=== PATIENT | male | born 1995 | race Caucasian/White ===

== ENCOUNTER 2025-04-06 16:00 | Inpatient (IN) ==
--- NOTE | 2025-04-06 16:33 | Emergency Department Note ---
History of Present Illness General Chief complaint: Swelling/Edema to Extremity Stated complaint: BLOOT CLOT L LEG, SWOLLEN Time Seen by Provider: 04/06/25 16:05 History of Present Illness Maximum Pain Intensity: 7 This is a 29-year-old male who presents to the emergency department via private vehicle with complaints of "left leg pain". The patient notes that yesterday evening he began with left leg pain. No trauma. No injury. Patient notes redness and swelling to the left thigh area. No history of blood clot. He denies any pertinent past medical history or surgeries. History of penicillin allergy as a child causing rash/hives. He denies any trauma, injury, fevers, chills, nausea or vomiting. No chest pain or shortness of breath. The patient did have sweats last night. Home Medications Medication Instructions Recorded Confirmed Type No Known Home Medications 04/06/25 04/06/25 History Allergies Allergy/AdvReac Type Severity Reaction Status Date / Time Penicillins Allergy Unknown Swelling Verified 04/06/25 17:51 of Lip/Tongue/Throat/hives Past Med/Surg History Problem List (Updated 04/06/25 @ 20:54 by Kamar Zendejas PA-C) Leukocytosis (Acute) Acute pain of left thigh (Acute) Tobacco abuse Edema of left thigh (Acute) Cellulitis of left leg (Acute) Medical History (Updated 04/06/25 @ 20:54 by Kamar Zendejas PA-C) No chronic diseases present Surgical History (Updated 04/06/25 @ 18:28 by Jacqueline Ashley PA-C) No significant past surgical history Family History (Updated 04/06/25 @ 18:28 by Jacqueline Ashley PA-C) Other No significant family history Social History (Updated 04/06/25 @ 18:29 by Jacqueline Ashley PA-C) Smoking Status: Current every day smoker Tobacco Type: Cigarettes and E-cigarettes / Vaping Preferred Language: Cuban marital status: Single marital status details: Has a fiance and 6 year old son current occupational status: employed current occupation: Works in a intermediate Feels Safe at Home: Yes Review of Systems A total of 10 systems reviewed and were otherwise negative Physical Exam Vital Signs Vital Signs - 24 hr 04/06/25 16:02 Temperature 36.5 C Temperature Source Temporal Artery Scan Pulse Rate 84 Pulse Strength Normal Respiratory Rate 16 Respiratory Effort / Characteristics Non-Labored Spontaneous Respiratory Depth Normal Respiratory Pattern Regular Blood Pressure 174/83 H Blood Pressure Mean 113 Blood Pressure Position Sitting Pulse Oximetry 99 Oxygen Delivery Method Room Air Sepsis Recent Fever Within 48 Hours No Sepsis New/Unexplained Change in Mental Status No Sepsis Action Taken by Nursing No Action Required VITAL SIGNS - Vital signs and nursing notes were reviewed. Hypertensive, otherwise stable and afebrile. GENERAL - 29-year-old male appearing his stated age who is in no acute distress. Communicates well with provider and answers questions appropriately. SKIN - erythema and edema to the left proximal medial thigh region. No fluctuance or crepitus. HEAD - NC/AT. EYES - Sclera anicteric. MOUTH/OROPHARYNX - Without perioral cyanosis. NECK - Neck with FROM. No nuchal rigidity. LUNGS - CTA CARDIAC - RRR ABDOMEN - Abdominal contour normal without pulsations or visible masses. BS normoactive all four quadrants. No tenderness, palpable masses, hepatosplenomegaly, or ascites noted. EXTREMITIES - No clubbing or peripheral cyanosis. Skin as above. Erythema and edema to the left anterior medial thigh proximally. No palpable cord. Left proximal medial thigh region is tender. No bony tenderness. +5/5 strength noted in UE/LE bilaterally. NEUROLOGIC - Cranial nerves II through XII grossly intact. PSYCH -alert, oriented and pleasant on exam Course Administered Medications Discontinued Medications Ceftriaxone Sodium (Rocephin) 2,000 mg in 50 mls @ 100 mls/hr IV NOW STA Stop: 04/06/25 18:15 Last Infusion: 04/06/25 20:41 Dose: Infused Documented By: Admin: 04/06/25 19:59 Dose: 100 mls/hr Documented By: SIVA Vancomycin HCl 2,250 mg/ (Sodium Chloride) 545 mls @ 200 mls/hr IV NOW ONE Stop: 04/06/25 20:29 Last Admin: 04/06/25 20:48 Dose: 200 mls/hr Documented By: ATS Ioversol (Optiray 320 100ml) 90 ml IV ONCE ONE Stop: 04/06/25 18:40 Last Admin: 04/06/25 18:40 Dose: 90 ml Documented By: LANE Medical Decision Making Laboratory Data 04/06/25 16:52 07/23/25 16:52 Lab Results 04/06/25 Range/Units 16:52 WBC 16.62 H (4.8-10.8) K/ul RBC 4.89 (4.70-6.10) M/uL Hgb 14.6 (14.0-18.0) g/dl Hct 42.7 (42.0-52.0) % MCV 87.3 (80.0-100.0) fL MCH 29.9 (25.0-34.0) pg MCHC 34.2 (32.0-36.0) g/dL RDW Std Deviation 37.7 (36.4-46.3) fL RDW Coeff of Hillary 11.8 (11.5-14.5) % Plt Count 285 (130-400) K/uL MPV 9.2 L (9.4-12.4) fL Immature Gran % (Auto) 0.4 % Neut % (Auto) 69.4 % Lymph % (Auto) 16.8 % [place] % (Auto) 11.2 % Eos % (Auto) 2.0 % Baso % (Auto) 0.2 % Neut # (Auto) 11.51 H (1.40-6.50) K/uL Lymph # (Auto) 2.80 (1.20-3.40) K/uL [place] # (Auto) 1.86 H (0.11-0.59) K/uL Eos # (Auto) 0.34 (0.00-0.50) K/uL Baso # (Auto) 0.04 (0.00-0.20) K/uL Immature Gran # (Auto) 0.07 (0.01-0.20) K/uL PT 12.1 H (9.0-12.0) Seconds INR 1.1 (0.9-1.1) APTT 30 (21-31) Seconds PTT Ratio 1.1 Sodium 139 (136-145) mmol/L Potassium 4.1 (3.5-5.1) mmol/L Chloride 105 (98-107) mmol/L Carbon Dioxide 27 (21-32) mmol/L Anion Gap 7 (3-11) BUN 16 (6-23) mg/dl Creatinine 0.91 (0.6-1.4) mg/dl Est Cr Clr Drug Dosing 160.3 ml/min eGFR 115.56 BUN/Creatinine Ratio 17.6 (10-20) Glucose 97 (70-99(Fasting)) mg/dl Calcium 9.3 (8.6-10.3) mg/dl Total Bilirubin 0.4 (0.2-1.0) mg/dl AST 19 (13-39) U/L ALT 28 (7-52) U/L Alkaline Phosphatase 51 (34-104) U/L Total Protein 7.5 (6.0-8.3) gm/dl Albumin 4.5 (3.4-5.0) gm/dl Globulin 3.0 (2.5-4.0) gm/dl Albumin/Globulin Ratio 1.5 (0.9-2) Procalcitonin < 0.02 (0-0.5) ng/ml Lyme Disease Screen Negative (Negative) Imaging Data Radiologist's Impression: Venous Doppler Study 04/06/25 16:29 Clinical History: Pain Technique: Venous ultrasound evaluation was performed utilizing grayscale, color Doppler and wave form evaluation. Images were also obtained with and without compression Findings: The left common femoral, superficial femoral, popliteal, and visualized calf veins demonstrate normal anechoic lumens with full compressibility. Normal flow is seen on color Doppler images. Expected waveforms were produced with augmentation maneuvers There are enlarged left inguinal lymph nodes with fatty chacorta, the largest measuring 3 x 1.7 x 1.1 cm Impression: 1. No evidence of left leg deep venous thrombosis 2. Left inguinal adenopathy, nonspecific in nature Electronically signed by Harris Harris 04-06-2025 5:38 PM MDM Narrative Patient was seen and evaluated as above in room D03. Review was performed of triage nursing notes and vital signs. I did review pertinent previous visits and patient history. After obtaining a thorough history and physical examination the above work up was performed. Patient has left leg pain with erythema and edema to the left medial proximal thigh region. Options of care were discussed with the patient. IV access was established. Labs were drawn. Ultrasound negative for DVT. I suspect infectious etiology. Labs reveal leukocytosis 16.62. No anemia. No emergent metabolic disturbance. Procalcitonin undetectable. Lyme screen negative. Blood cultures pending. I do believe that further evaluation and management in the inpatient setting is warranted for this rather quickly progressing cellulitis of the left leg. IV antibiotics ordered. Case discussed with the hospitalist service. Please refer to further documentation regarding his stay. GCS: 15 In the evaluation and treatment of this patient the following differential diagnoses were entertained: Cellulitis, necrotizing fasciitis, DVT, sprain, strain, among others Impression & Plan Cellulitis of left leg, Edema of left thigh, Acute pain of left thigh, Leukocytosis Discharge Plan Visit Data Chief Complaint: Swelling/Edema to Extremity Stated Complaint: BLOOT CLOT L LEG, SWOLLEN ED Provider: Swetha Mott ED Midlevel Provider: Kamar Zendejas Discharge Problem: Cellulitis of left leg, Edema of left thigh, Acute pain of left thigh, Leukocytosis Patient Disposition: Admitted As Inpatient Condition: Good Discharge Instructions Interventions: ED Discharge Assessment Last Done: 04/06/25 20:17
[2025-04-06 17:07] LABS: Hematocrit (blood only) 42.7 % (42.0-52.0); Hemoglobin 14.6 g/dl (14.0-18.0); Immature Granulocytes # (auto) 0.07 K/uL (0.01-0.20); Immature Granulocytes % (auto) 0.4 %; Mean Corpuscular Hemoglobin 29.9 pg (25.0-34.0); Mean Corpuscular Volume 87.3 fL (80.0-100.0); Platelet Count 285 K/uL (130-400); RDW Standard Deviation 37.7 fL (36.4-46.3); Red Blood Count 4.89 M/uL (4.70-6.10); White Blood Count 16.62 K/ul (4.8-10.8)
[2025-04-06 17:35] LABS: Alanine Aminotransferase 28.0 U/L (7-52); Albumin Globulin Ratio 1.5 (0.9-2); Alkaline Phosphatase 51.0 U/L (34-104); Anion Gap 7.0 (3-11); Bilirubin,Total 0.4 mg/dl (0.2-1.0); Blood Urea Nitrogen 16.0 mg/dl (6-23); Calcium 9.3 mg/dl (8.6-10.3); Carbon Dioxide 27.0 mmol/L (21-32); Chloride 105.0 mmol/L (98-107); Creatinine Clr Calc Pharmacy 160.3 ml/min; Globulin 3.0 gm/dl (2.5-4.0); Glucose 97.0 mg/dl (70-99(Fasting)); Potassium 4.1 mmol/L (3.5-5.1); Sodium 139.0 mmol/L (136-145); Total Protein 7.5 gm/dl (6.0-8.3)
--- NOTE | 2025-04-06 17:38 | Ultrasound Report ---
Clinical History: Pain Technique: Venous ultrasound evaluation was performed utilizing grayscale, color Doppler and wave form evaluation. Images were also obtained with and without compression Findings: The left common femoral, superficial femoral, popliteal, and visualized calf veins demonstrate normal anechoic lumens with full compressibility. Normal flow is seen on color Doppler images. Expected waveforms were produced with augmentation maneuvers There are enlarged left inguinal lymph nodes with fatty chacorta, the largest measuring 3 x 1.7 x 1.1 cm Impression: 1. No evidence of left leg deep venous thrombosis 2. Left inguinal adenopathy, nonspecific in nature Electronically signed by Harris Harris 04-06-2025 5:38 PM
[2025-04-06 17:39] LABS: INR 1.1 (0.9-1.1); Partial Thromboplastin Time 30 Seconds (21-31); Procalcitonin < 0.02 ng/ml (0-0.5); Prothrombin Time 12.1 Seconds (9.0-12.0)
[2025-04-06] MEDS ORDERED: VANCOMYCIN CONSULT ACTIVE PRN (17:46)
[2025-04-06 18:04] LABS: Lyme Screen Rflx Confirmation Negative (Negative)
--- NOTE | 2025-04-06 18:23 | History & Physical Report ---
Date of Service April 06, 2025 Assessment & Plan (1) Cellulitis of left leg: (2) Edema of left thigh: (3) Tobacco abuse: Plan Otherwise healthy 29 yr old M who presents to ED 2/2 Left thigh pain/swelling/redness x 1 day. 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 Pt was seen and examined in collaboration with Dr. Coleman, please see addendum I spent a total of 53 minutes coordinating, documenting and providing care for this patient excluding time spent in the performance of separately billed services or time spent by another provider/QHP. History of Present Illness Chief Complaint: LLE pain x 1 day. Primary Care Provider: NO PCP This is a 29 yr old M who has no significant PMH who presents to ED with c/o LLE x 1 day. 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 He was sitting in a pew when he noticed his left inner thigh was starting to get painful. By the time they left and took the 2 minute trip home his leg was extremely painful. He went to bed last night and when he woke up his compression shorts were very tight. When he pulled them off it left a ring around his leg. He thought maybe he had a blood clot. He continued to go to work. After work he came home to put shorts on and the area that was very painful was now red. The redness has since spread up his inner/anterior thigh. He has never had anything like this before. He is very active outdoors, avid claus and hiker. Denies any known insect or tick bite. He reports waking up this morning with sweats, but otherwise denies documented fever or chills. He denies chest pain, sob, n/v/d, abd pain, change in bowel or urinary habits. He did not take anything OTC for pain. He does not see a PCP. He is not fond of taking medications that are made in a lab so he doesn't take anything unless he absolutely needs it. He smokes 1/2ppd. He vapes nicotine during the day while at work. He works in a Skilled [employer]. He drinks beer occasionally.. Denies any FH or past surgical history. Allergies Allergy/AdvReac Type Severity Reaction Status Date / Time Penicillins Allergy Unknown Swelling Verified 04/06/25 17:51 of Lip/Tongue/Throat/hives Home Medications Medication Instructions Recorded Confirmed Type No Known Home Medications 04/06/25 04/06/25 History Past Med/Surg History Problem List (Updated 04/06/25 @ 18:31 by Jacqueline Ashley PA-C) Tobacco abuse Edema of left thigh Cellulitis of left leg Medical History (Updated 04/06/25 @ 18:31 by Jacqueline Ashley PA-C) No chronic diseases present Surgical History (Updated 04/06/25 @ 18:28 by Jacqueline Ashley PA-C) No significant past surgical history Family History (Updated 04/06/25 @ 18:28 by Jacqueline Ashley PA-C) Other No significant family history Social History (Updated 04/06/25 @ 18:29 by Jacqueline Ashley PA-C) Smoking Status: Current every day smoker Tobacco Type: Cigarettes and E-cigarettes / Vaping Preferred Language: Khmer marital status: Single marital status details: Has a fiance and 6 year old son current occupational status: employed current occupation: Works in a penitentiary Feels Safe at Home: Yes Review of Systems Review of Systems: All systems reviewed & are unremarkable except as noted in HPI & below Physical Exam Physical Exam: Gen: WD/WN, NAD, A&O x3 HEENT: Normocephalic, atraumatic, conjunctivae moist, sclerae anicteric, mucous membranes moist. Lung: Clear to Auscultation bilaterally, no wheezes/rales/rhonchi Heart: Regular rate, regular rhythm, no murmurs, rubs, or gallops Abdomen: Soft, NT, ND +BS x 4 Extremities: LLE thigh edema, inner thigh erythema extending proximally inferior to groin, area marked with skin marker, superior to erythema is evidence of ingrown hair, some scabs on knee Skin: Warm, no rash, negative turgor. Results & Data Results & Data Vital Signs (Past 12 Hours) Vital Signs Temp Pulse Resp BP Pulse Ox O2 Del Method 04/06/25 16:02 36.5 C 84 16 174/83 H 99 Room Air Laboratory Results I have independently reviewed and interpreted patient's admitting labs including CBC, CMP, PTT, PT/INR, procal, lyme Diagnostic Findings Venous Doppler Study 04/06/25 16:29 Clinical History: Pain Technique: Venous ultrasound evaluation was performed utilizing grayscale, color Doppler and wave form evaluation. Images were also obtained with and without compression Findings: The left common femoral, superficial femoral, popliteal, and visualized calf veins demonstrate normal anechoic lumens with full compressibility. Normal flow is seen on color Doppler images. Expected waveforms were produced with augmentation maneuvers There are enlarged left inguinal lymph nodes with fatty chacorta, the largest measuring 3 x 1.7 x 1.1 cm Impression: 1. No evidence of left leg deep venous thrombosis 2. Left inguinal adenopathy, nonspecific in nature Electronically signed by Harris Harris 04-06-2025 5:38 PM COVID-19 Results Results COVID-19 Adm Lab Results: RBC 4.89 M/uL (4.70-6.10) 04/06/25 WBC 16.62 K/ul (4.8-10.8) H 04/06/25 Hgb 14.6 g/dl (14.0-18.0) 04/06/25 Hct 42.7 % (42.0-52.0) 04/06/25 Plt Count 285 K/uL (130-400) 04/06/25 Neutrophils (%) (Auto) 69.4 % 04/06/25 Lymphocytes (%) (Auto) 16.8 % 04/06/25 Monocytes # (Auto) 1.86 K/uL (0.11-0.59) H 04/06/25 Eosinophils # (Auto) 0.34 K/uL (0.00-0.50) 04/06/25 Immature Granulocyte % (Auto) 0.4 % 04/06/25 Neutrophils # (Auto) 11.51 K/uL (1.40-6.50) H 04/06/25 Lymphocytes # (Auto) 2.80 K/uL (1.20-3.40) 04/06/25 Monocytes # (Auto) 1.86 K/uL (0.11-0.59) H 04/06/25 Eosinophils # (Auto) 0.34 K/uL (0.00-0.50) 04/06/25 Basophils # (Auto) 0.04 K/uL (0.00-0.20) 04/06/25 Immature Granulocyte # (Auto) 0.07 K/uL (0.01-0.20) 5 Na 139 mmol/L (136-145) 04/06/25 K 4.1 mmol/L (3.5-5.1) 04/06/25 Cl 105 mmol/L (98-107) 04/06/25 CO2 27 mmol/L (21-32) 04/06/25 Anion Gap 7 (3-11) 04/06/25 BUN 16 mg/dl (6-23) 04/06/25 Creatinine 0.91 mg/dl (0.6-1.4) 04/06/25 BUN/Creatinine Ratio 17.6 (10-20) 04/06/25 Glucose Level 97 mg/dl (70-99(Fasting)) 04/06/25 Ca 9.3 mg/dl (8.6-10.3) 04/06/25 Total Bilirubin 0.4 mg/dl (0.2-1.0) 04/06/25 AST/SGOT 19 U/L (13-39) 04/06/25 ALT/SGPT 28 U/L (7-52) 04/06/25 Alkaline Phosphatase 51 U/L (34-104) 04/06/25 Total Protein 7.5 gm/dl (6.0-8.3) 04/06/25 Albumin 4.5 gm/dl (3.4-5.0) 04/06/25 Globulin 3.0 gm/dl (2.5-4.0) 04/06/25 Albumin/Globulin Ratio 1.5 (0.9-2) 04/06/25 Procalcitonin < 0.02 ng/ml (0-0.5) 04/06/25 PTT 30 Seconds (21-31) 04/06/25 INR 1.1 (0.9-1.1) 04/06/25 Code Status & VTE Plan Code Status FULL CODE VTE Prophylaxis Plan VTE Prophylaxis will be ordered: No Supervising Physician Co-Signing Physician Notes Patient seen and examined at bedside. He presents with right thigh cellulitis symptom onset in last couple of days. No open wound noticed. No signs of abscess. CT of the leg obtained to rule out underlying abscess. Plan to continue on vancomycin; transition to oral antibiotic after clinical improvement. I have reviewed the advanced practitioner's documentation, and I agree with, and take responsibility for the plan of care I spent a total of 30 minutes coordinating, documenting, and providing care for this patient excluding time spent in the performance of separately billed services. All of the aforementioned completed while collaborating with the assigned advanced practitioner for a full treatment plan
[2025-04-06] MEDS: OPTIRAY 320 100ml IV ONE (18:40)
--- NOTE | 2025-04-06 19:12 | CT Scan Report ---
CT LEFT FEMUR WITH and WITHOUT CONTRAST: HISTORY: Pain TECHNIQUE: CT of the left femur was obtained with and without intravenous contrast. Coronal and sagittal reformats were created. IV CONTRAST: 100 mL of OMNIPAQUE 300 COMPARISON: None. FINDINGS: Within the subcutaneous fat layer of the anterior and medial thigh there are phlegmonous changes with edema with stranding of fat. No drainable/organized fluid collection is identified to suggest an abscess. There is overlying skin thickening to this area. Enlarged left inguinal lymph nodes are probably reactionary nature. IMPRESSION: Cellulitis in the subcutaneous layer of the left anterior and medial thigh with no abscess identified Electronically signed by Juvenal Verdin 04-06-2025 7:11 PM
[2025-04-06] MEDS: cefTRIAXone SODIUM 2,000 MG/50 ML BAG IV STA (19:59)
[2025-04-06] MEDS ORDERED: POLYETHYLENE (MIRALAX) 17 GM PACK PO PRN (20:39)
[2025-04-06] MEDS ORDERED: ONDANSETRON INJ 2 MG/ML 2 ML VIAL IV PRN (20:39)
[2025-04-06] MEDS ORDERED: FAMOTIDINE 20 MG TAB PO PRN (20:39)
[2025-04-06] MEDS: VANCOMYCIN HCL 2,250 MG in SODIUM CHLORIDE 0.9% 500 ML IV ONE (20:48)
[2025-04-06] MEDS: NICOTINE 14 MG/24 HR PATCH TD SCH (21:15)
[2025-04-07] MEDS: VANCOMYCIN HCL 1,750 MG in SODIUM CHLORIDE 0.9% 500 ML IV SCH (05:18)
[2025-04-07] MEDS: ACETAMINOPHEN 325 MG TAB PO PRN (05:20)
[2025-04-07 07:52] LABS: Hematocrit (blood only) 40.6 % (42.0-52.0); Hemoglobin 13.9 g/dl (14.0-18.0); Immature Granulocytes # (auto) 0.06 K/uL (0.01-0.20); Immature Granulocytes % (auto) 0.4 %; Mean Corpuscular Hemoglobin 29.5 pg (25.0-34.0); Mean Corpuscular Volume 86.2 fL (80.0-100.0); Platelet Count 241 K/uL (130-400); RDW Standard Deviation 37.4 fL (36.4-46.3); Red Blood Count 4.71 M/uL (4.70-6.10); White Blood Count 13.68 K/ul (4.8-10.8)
[2025-04-07 08:14] LABS: Alanine Aminotransferase 23.0 U/L (7-52); Albumin Globulin Ratio 1.5 (0.9-2); Alkaline Phosphatase 44.0 U/L (34-104); Anion Gap 5.0 (3-11); Bilirubin,Total 0.5 mg/dl (0.2-1.0); Blood Urea Nitrogen 11.0 mg/dl (6-23); Calcium 8.5 mg/dl (8.6-10.3); Carbon Dioxide 24.0 mmol/L (21-32); Chloride 108.0 mmol/L (98-107); Creatinine Clr Calc Pharmacy 184.2 ml/min; Globulin 2.7 gm/dl (2.5-4.0); Glucose 97.0 mg/dl (70-99(Fasting)); Magnesium 1.9 mg/dl (1.7-2.4); Potassium 4.0 mmol/L (3.5-5.1); Sodium 137.0 mmol/L (136-145); Total Protein 6.7 gm/dl (6.0-8.3)
[2025-04-07] MEDS: REMOVE NICODERM PATCH SCH (08:59)
[2025-04-07] MEDS: ADVANCED PROBIOTIC 625 MG CAPSULE PO SCH (08:59)
--- NOTE | 2025-04-07 11:25 | Pharmacy Report ---
Pharmacy PK ABX Note - Date of Service April 07, 2025 - Assessment and Plan Assessment 29 year old M receiving empiric vancomycin for treatment of LLE cellulitis w/ MRSA risk factor (works at [employer]). Pertinent microbiologic data includes: MRSA nasal swab is negative, blood cultures x [address] shows cellulitis in SC layer of thigh w/ no abscess identified. MRSA coverage reasonable in light of MRSA risk factor. Patient has reported penicillin allergy, but appears to have tolerated ceftriaxone in ED. Day # 1 of antimicrobial therapy. Plan Vancomycin * Loading dose: 2250 mg IV x 1, then subsequent dose of 1750 mg IV x 1 * Maintenance dose: 1500 mg IV every 8 hours * Regimen is predicted to achieve target AUC/MERYL of 400-600 mg/L.hr * Random level ordered for: 04/08/25 Pharmacy will continue to follow and will adjust dose/frequency as necessary. Thank you. Pharmacy has transitioned to AUC monitoring for vancomycin. AUC/MERLY is the preferred PK/PD target and is associated with decreased risk of nephrotoxicity compared to traditional trough targets.
[2025-04-07] MEDS: VANCOMYCIN HCL 1,500 MG in SODIUM CHLORIDE 0.9% 500 ML IV SCH (13:46)
--- NOTE | 2025-04-07 13:49 | Hospitalist Progress Note ---
Date of Service April 07, 2025 Assessment & Plan (1) Cellulitis of left leg: (2) Edema of left thigh: (3) Tobacco abuse: Plan Patient is a 29-year-old male who presents to ED 2/2 Left thigh pain/swelling/redness x 1 day. Left leg cellulitis --Leg CT:Cellulitis in the subcutaneous layer of the left anterior and medial thigh with no abscess identified --Venous Doppler: No evidence of left leg deep venous thrombosis. Left inguinal adenopathy, nonspecific in nature -- Blood culture pending --Nasal MRSA, Lyme screen negative --Vancomycin discontinued --Continue Rocephin, doxycycline Tobacco/nicotine abuse: nicotine patch added [employer] to quit smoking DVT Px: Lovenox SQ CODE STATUS Full code Admission and Anticipated Discharge Date Admission Date: April 06, 2025 Subjective Patient is seen and examined at bedside States having left thigh pain and swelling associated with redness Denies any chest pain, dyspnea, nausea, vomiting, abdominal pain Also denies any trauma, no tick/insect bite No other complaints today Review of Systems Review of Systems: All systems reviewed & are unremarkable except as noted in Subjective Physical Exam Physical Exam: Physical Exam: Vitals signs as noted above General Appearance:Moderately built and nourished, no apparent distress Head: normocephalic, Atraumatic Eyes: normal inspection, EOMI Neck: supple, Trachea midline Respiratory/Chest: Normal breath sounds, CTA, No accessory muscle use Cardiovascular: S1, S2, No murmur Abdomen/GI:Soft, Non tender, Bowel sounds present Extremities/Musculoskeletal:normal inspection, no pedal edema, left thigh swelling, tenderness, erythema Neurologic/Psych:AAOX3, grossly no focal neurological deficits Skin: normal color, warm Results & Data Results & Data Vital Signs (Past 12 Hours) Vital Signs Temp Pulse Resp BP Pulse Ox O2 Del Method 04/07/25 07:14 36.8 C 74 18 112/66 98 Room Air Laboratory Results Short CBC 04/06/25 04/07/25 Range/Units 16:52 07:01 WBC 16.62 H 13.68 H (4.8-10.8) K/ul Hgb 14.6 13.9 L (14.0-18.0) g/dl Hct 42.7 40.6 L (42.0-52.0) % Plt Count 285 241 (130-400) K/uL BMP 04/06/25 04/07/25 16:52 07:01 Sodium 139 137 Potassium 4.1 4.0 Chloride 105 108 H Carbon Dioxide 27 24 BUN 16 11 Creatinine 0.91 0.79 Glucose 97 97 Calcium 9.3 8.5 L Liver Function 04/06/25 04/07/25 Range/Units 16:52 07:01 Total Bilirubin 0.4 0.5 (0.2-1.0) mg/dl AST 19 14 (13-39) U/L ALT 28 23 (7-52) U/L Alkaline Phosphatase 51 44 (34-104) U/L Albumin 4.5 4.0 (3.4-5.0) gm/dl
[2025-04-07] MEDS: ENOXAPARIN INJ 40 MG/0.4 ML SYR SQ SCH (14:54)
[2025-04-07 19:13] LABS: A calco-baum cmplx NotReported Not Detected (NotDetected); Bact fragilis Not Reported Not Detected (NotDetected); Blood Culture Id Panel See PCR Comment (NotDetected); C auris Not Reported Not Detected (NotDetected); Calbicans Not Reported Not Detected (NotDetected); Candida glabrata Not Reported Not Detected (NotDetected); Candida krusei Not Reported Not Detected (NotDetected); Cneoformans/gatti Not Reported Not Detected (NotDetected); Cparapsilosis Not Reported Not Detected (NotDetected); Ctropicalis Not Reported Not Detected (NotDetected); E cloacae compx Not Reported Not Detected (NotDetected); Efaecalis Not Reported Not Detected (NotDetected); Efaecium Not Reported Not Detected (NotDetected); Enterobacterales Not Reported Not Detected (NotDetected); Escherichia coli Not Reported Not Detected (NotDetected); H influenzae Not Reported Not Detected (NotDetected); K aerogenes Not Reported Not Detected (NotDetected); Koxytoca Not Reported Not Detected (NotDetected); Kpneumoniae grp Not Reported Not Detected (NotDetected); Lmonocyt Not Reported Not Detected (NotDetected); N meningitidis Not Reported Not Detected (NotDetected); P aeruginosa Not Reported Not Detected (NotDetected); Proteus spp Not Reported Not Detected (NotDetected); Salmonella spp Not Reported Not Detected (NotDetected); Staph lugdunensis Not Reported Not Detected (NotDetected); Staph spp. Not Reported DETECTED (NotDetected); Staphaureus Not Reported Not Detected (NotDetected); Staphepi Not Reported DETECTED (NotDetected); Stenmaltophilia Not Reported Not Detected (NotDetected); Strep agal(GrpB) Not Reported Not Detected (NotDetected); Strep pneum Not Reported Not Detected (NotDetected); Strep pyog (GrpA) Not Reported Not Detected (NotDetected); Strep spp Not Reported Not Detected (NotDetected); mecAC Resistant Gene Not Detected (NotDetected)
[2025-04-07 19:33] LABS: Staphylococcus epidermidis DETECTED (NotDetected); Staphylococcus spp. DETECTED (NotDetected)
[2025-04-07] MEDS: cefTRIAXone SODIUM 2,000 MG/50 ML BAG IV SCH (19:54)
[2025-04-07] MEDS: MELATONIN 3 MG TAB PO PRN (20:00)
[2025-04-07] MEDS: DOXYCYCLINE HYCLATE 100 MG CAP PO SCH (20:00)
[2025-04-08 07:39] LABS: Hematocrit (blood only) 42.8 % (42.0-52.0); Hemoglobin 14.6 g/dl (14.0-18.0); Mean Corpuscular Hemoglobin 29.5 pg (25.0-34.0); Mean Corpuscular Volume 86.5 fL (80.0-100.0); Platelet Count 235 K/uL (130-400); RDW Standard Deviation 37.6 fL (36.4-46.3); Red Blood Count 4.95 M/uL (4.70-6.10); White Blood Count 10.00 K/ul (4.8-10.8)
[2025-04-08 07:44] VITALS: O2SAT 96
[2025-04-08 07:57] LABS: Anion Gap 5.0 (3-11); Blood Urea Nitrogen 11.0 mg/dl (6-23); Calcium 8.8 mg/dl (8.6-10.3); Carbon Dioxide 25.0 mmol/L (21-32); Chloride 108.0 mmol/L (98-107); Creatinine Clr Calc Pharmacy 181.9 ml/min; Glucose 92.0 mg/dl (70-99(Fasting)); Potassium 4.2 mmol/L (3.5-5.1); Sodium 138.0 mmol/L (136-145)
[2025-04-08 11:55] VITALS: BP 132/92; PULSE 73; RESP 17; TEMP 98.4
--- NOTE | 2025-04-08 14:23 | Infectious Disease Consult ---
Date of Service April 08, 2025 Telehealth Information I performed this visit using a real-time telehealth connection between my location and the patients location ([facility]). After connecting through interactive tele-video, patient was identified by name and date of and/or wristband check.Patient (or authorized healthcare appeals representative) was informed that this was a telemedicine visit and it was being conducted confidentially over secure lines. My office door was closed and no one else was present in the room with me.Patient (or authorized healthcare appeals representative) provided consent to proceed with the visit, expressed an understanding of privacy and security of the telemedicine visit, and gave permission to have a hospital appeals representative in the room in order to assist with the visit and to conduct portions of the visit, as needed. I informed the patient (or authorized healthcare appeals representative) that I reviewed their record and presented the opportunity for them to ask any questions regarding the visit today. The patient agreed to participate. Assessment & Plan (1) Cellulitis of left thigh: Plan: Assessment: L thigh cellulitis Hx of PCN allergy (angioedema but he has been taking amoxicillin from childhood) Recommendations: - Stop ceftriaxone and doxycycline - Start either cephalexin 500 mg po every 6 hours or cefadroxil 1 gm po every 12 hours, suspecting Strep spp or MSSA - Anticipate total 14 days from 04/07 to 04/20/25. - Please, remove PCN from allergy list as the patient is NOT allergy to PCN. He has been taking amoxicillin from childhood w/o any reaction: PCN, amoxicillin, cephalexin and cefadroxil all share the same R1 side chain which is the usual component that leads to serious reaction if the patient is allergic. This patient is NOT allergic to PCN. - Probiotic while on abx therapy - ID signing off During this patient encounter, one or more of the following was provided in addition to my in person visit: disease transmission risk assessment and mitigation; public health investigation, analysis, and testing; and/or complex antimicrobial therapy counseling and treatment. I spent a total of 65 minutes coordinating, documenting, and providing care for this patient excluding time spent in the performance of separately billed services or time spent by another provider/QHP. 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 He had profuse sweat on the night he discovered the lesion. No trauma or injury. Denie shaving his leg. Denies using IV drug. He never had cellulitis in the past. He wears a spandix underwear which he has been doing all his life. No obvious tickbite. He feels well overall w/o pain when he ambulates but it is tender to touch. No diarrhea, n/v, sob, cp, coughing, or urinary symptoms. Enedina, nursing staff, accompanied the patient during the encounter. Allergies Allergy/AdvReac Type Severity Reaction Status Date / Time Penicillins Allergy Unknown Swelling Verified 04/06/25 17:51 of Lip/Tongue/Throat/hives Home Medications Medication Instructions Recorded Confirmed Type No Known Home Medications 04/06/25 04/06/25 History Patient History Medical History (Updated 04/08/25 @ 14:22 by Keron Sheldon MD) No chronic diseases present Surgical History (Updated 04/06/25 @ 18:28 by Jacqueline Ashley PA-C) No significant past surgical history Family History (Updated 04/06/25 @ 18:28 by Jacqueline Ashley PA-C) Other No significant family history Social History (Updated 04/06/25 @ 18:29 by Jacqueline Ashley PA-C) Smoking Status: Current every day smoker Tobacco Type: Cigarettes Cigarettes Per Day: half a pack per day; Do You Dip or Chew Tobacco: No; Tobacco Cessation Education Requested by Patient: No Hx Alcohol Use: Yes Alcohol type: beer Hx Substance Use: No Preferred Language: Wolof Communication Ability: Effective Tilting Saw Operator Required: No Beliefs That Will Affect Care: None marital status: Single marital status details: Has a fiance and 6 year old son Current Living Situation: Family current occupational status: employed current occupation: Works in a f[employer] Other Information That Helps Us Care for You: No Feels Safe at Home: Yes Safety Concerns: Feels Safe At This Time Assistive Devices: None Review of Systems as hPI and all others negative Physical Exam Gen: no acute distress Lungs: breathing comfortably Skin: diffuse erythema on L inner thigh extending partially to anterior thigh, no obvious wound or blister Neuro: alert, awak and oriented x3 Results & Data Vital Signs (Past 12 Hours) Vital Signs Temp Pulse Resp BP Pulse Ox O2 Del Method 04/08/25 11:53 36.9 C 73 17 132/92 96 Room Air 04/08/25 07:43 36.5 C 67 18 128/78 96 Room Air Laboratory Results WBC 16.62K ->-> 10K H 14.6 Plt 235K Cr 0.8 LFT unremarkable Blood cx (04/06): S epidermis (1 of 4) Blood cx (04/08): NGTD Lyme serology: neg Doppler: 1. No evidence of left leg deep venous thrombosis 2. Left inguinal adenopathy, nonspecific in nature CT Femur (04/06): Cellulitis in the subcutaneous layer of the left anterior and medial thigh with no abscess identified Medications Administered ABX CTX Doxycycline
--- NOTE | 2025-04-08 14:48 | Hospitalist Progress Note ---
Date of Service April 08, 2025 Assessment & Plan (1) Cellulitis of left leg: (2) Edema of left thigh: (3) Tobacco abuse: Plan Patient is a 29-year-old male who presents to ED 2/2 Left thigh pain/swelling/redness x 1 day. Left leg cellulitis --Leg CT:Cellulitis in the subcutaneous layer of the left anterior and medial thigh with no abscess identified --Venous Doppler: No evidence of left leg deep venous thrombosis. Left inguinal adenopathy, nonspecific in nature -- Blood culture as below --Nasal MRSA, Lyme screen negative --Patient states tolerating amoxicillin on multiple occasions with no issues although documented that he had penicillin allergies which is believed to be untrue --Discussed with infectious disease on 04/08/2025 --Vancomycin discontinued --Continue Rocephin, doxycycline>> plan to transition to cefadroxil 1 g twice a day to complete total 2-week course as recommended by infectious disease --Plan to discharge home today Abnormal blood cultures 1/4 growing Staph epidermidis --Repeat blood cultures pending --ECHO: No vegetation on echo Advised to follow-up with primary care physician on discharge for blood culture results Tobacco/nicotine abuse: nicotine patch added Regulatory Affairs Director to quit smoking DVT Px: Lovenox SQ CODE STATUS Full code Admission and Anticipated Discharge Date Admission Date: April 06, 2025 Subjective Patient is seen and examined at bedside States feeling a lot better today Leg erythema, pain, swelling much improved Discussed with ID today Offers no other complaints Eager to get discharged Denies any chest pain, dyspnea, nausea, vomiting, abdominal pain Review of Systems Review of Systems: All systems reviewed & are unremarkable except as noted in Subjective Physical Exam Physical Exam: Physical Exam: Vitals signs as noted above General Appearance:Moderately built and nourished, no apparent distress Head: normocephalic, Atraumatic Eyes: normal inspection, EOMI Neck: supple, Trachea midline Respiratory/Chest: Normal breath sounds, CTA, No accessory muscle use Cardiovascular: S1, S2, No murmur Abdomen/GI:Soft, Non tender, Bowel sounds present Extremities/Musculoskeletal:normal inspection, no pedal edema, left thigh swelling, tenderness, erythema Neurologic/Psych:AAOX3, grossly no focal neurological deficits Skin: normal color, warm Results & Data Results & Data Vital Signs (Past 12 Hours) Vital Signs Temp Pulse Resp BP Pulse Ox O2 Del Method 04/08/25 11:53 36.9 C 73 17 132/92 96 Room Air 04/08/25 07:43 36.5 C 67 18 128/78 96 Room Air Laboratory Results Short CBC 04/08/25 Range/Units 06:59 WBC 10.00 (4.8-10.8) K/ul Hgb 14.6 (14.0-18.0) g/dl Hct 42.8 (42.0-52.0) % Plt Count 235 (130-400) K/uL BMP 04/08/25 06:59 Sodium 138 Potassium 4.2 Chloride 108 H Carbon Dioxide 25 BUN 11 Creatinine 0.80 Glucose 92 Calcium 8.8
--- NOTE | 2025-04-08 15:09 | Discharge Summary ---
Date of Service April 08, 2025 Admission HPI Per Admitting Provider This is a 29 yr old M who has no significant PMH who presents to ED with c/o LLE x 1 day. 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 He was sitting in a pew when he noticed his left inner thigh was starting to get painful. By the time they left and took the 2 minute trip home his leg was extremely painful. He went to bed last night and when he woke up his compression shorts were very tight. When he pulled them off it left a ring around his leg. He thought maybe he had a blood clot. He continued to go to work. After work he came home to put shorts on and the area that was very painful was now red. The redness has since spread up his inner/anterior thigh. He has never had anything like this before. He is very active outdoors, avid claus and hiker. Denies any known insect or tick bite. He reports waking up this morning with sweats, but otherwise denies documented fever or chills. He denies chest pain, sob, n/v/d, abd pain, change in bowel or urinary habits. He did not take anything OTC for pain. He does not see a PCP. He is not fond of taking medications that are made in a lab so he doesn't take anything unless he absolutely needs it. He smokes 1/2ppd. He vapes nicotine during the day while at work. He works in a [employer]. He drinks beer occasionally.. Denies any FH or past surgical history. Admission Exam Per Admitting Provider Gen: WD/WN, NAD, A&O x3 HEENT: Normocephalic, atraumatic, conjunctivae moist, sclerae anicteric, mucous membranes moist. Lung: Clear to Auscultation bilaterally, no wheezes/rales/rhonchi Heart: Regular rate, regular rhythm, no murmurs, rubs, or gallops Abdomen: Soft, NT, ND +BS x 4 Extremities: LLE thigh edema, inner thigh erythema extending proximally inferior to groin, area marked with skin marker, superior to erythema is evidence of ingrown hair, some scabs on knee Skin: Warm, no rash, negative turgor. Principal Diagnosis Left leg cellulitis Discharge Data Allergies Allergy/AdvReac Type Severity Reaction Status Date / Time Penicillins Allergy Unknown Swelling Verified 04/06/25 17:51 of Lip/Tongue/Throat/hives Consultations 04/06/25 17:47 ED Decision to Admit Stat 04/08/25 07:38 Consult Infectious Diseases Routine Procedures Performed Laboratory Results WBC 10.00 K/ul (4.8-10.8) 04/08/25 06:59 RBC 4.95 M/uL (4.70-6.10) 04/08/25 06:59 Hgb 14.6 g/dl (14.0-18.0) 04/08/25 06:59 Hct 42.8 % (42.0-52.0) 04/08/25 06:59 MCV 86.5 fL (80.0-100.0) 04/08/25 06:59 MCH 29.5 pg (25.0-34.0) 04/08/25 06:59 MCHC 34.1 g/dL (32.0-36.0) 04/08/25 06:59 RDW Std Deviation 37.6 fL (36.4-46.3) 04/08/25 06:59 RDW Coeff of Hillary 11.9 % (11.5-14.5) 04/08/25 06:59 Plt Count 235 K/uL (130-400) 04/08/25 06:59 MPV 9.6 fL (9.4-12.4) 04/08/25 06:59 Immature Gran % (Auto) 0.4 % 04/07/25 07:01 Neut % (Auto) 72.8 % 04/07/25 07:01 Lymph % (Auto) 12.7 % 04/07/25 07:01 [place] % (Auto) 11.9 % 04/07/25 07:01 Eos % (Auto) 1.9 % 04/07/25 07:01 Baso % (Auto) 0.3 % 04/07/25 07:01 Neut # (Auto) 9.95 K/uL (1.40-6.50) H 04/07/25 07:01 Lymph # (Auto) 1.74 K/uL (1.20-3.40) 04/07/25 07:01 [place] # (Auto) 1.63 K/uL (0.11-0.59) H 04/07/25 07:01 Eos # (Auto) 0.26 K/uL (0.00-0.50) 04/07/25 07:01 Baso # (Auto) 0.04 K/uL (0.00-0.20) 04/07/25 07:01 Immature Gran # (Auto) 0.06 K/uL (0.01-0.20) 04/07/25 07:01 PT 12.1 Seconds (9.0-12.0) H 04/06/25 16:52 INR 1.1 (0.9-1.1) 04/06/25 16:52 APTT 30 Seconds (21-31) 04/06/25 16:52 PTT Ratio 1.1 04/06/25 16:52 Sodium 138 mmol/L (136-145) 04/08/25 06:59 Potassium 4.2 mmol/L (3.5-5.1) 04/08/25 06:59 Chloride 108 mmol/L (98-107) H 04/08/25 06:59 Carbon Dioxide 25 mmol/L (21-32) 04/08/25 06:59 Anion Gap 5 (3-11) 04/08/25 06:59 BUN 11 mg/dl (6-23) 04/08/25 06:59 Creatinine 0.80 mg/dl (0.6-1.4) 04/08/25 06:59 Est Cr Clr Drug Dosing 181.9 ml/min 04/08/25 06:59 eGFR 121.34 04/08/25 06:59 BUN/Creatinine Ratio 13.8 (10-20) 04/08/25 06:59 Glucose 92 mg/dl (70-99(Fasting)) 04/08/25 06:59 Calcium 8.8 mg/dl (8.6-10.3) 04/08/25 06:59 Magnesium 1.9 mg/dl (1.7-2.4) 04/07/25 07:01 Total Bilirubin 0.5 mg/dl (0.2-1.0) 04/07/25 07:01 AST 14 U/L (13-39) 04/07/25 07:01 ALT 23 U/L (7-52) 04/07/25 07:01 Alkaline Phosphatase 44 U/L (34-104) 04/07/25 07:01 Total Protein 6.7 gm/dl (6.0-8.3) 04/07/25 07:01 Albumin 4.0 gm/dl (3.4-5.0) 04/07/25 07:01 Globulin 2.7 gm/dl (2.5-4.0) 04/07/25 07:01 Albumin/Globulin Ratio 1.5 (0.9-2) 04/07/25 07:01 Procalcitonin < 0.02 ng/ml (0-0.5) 04/06/25 16:52 Nasal Screen MRSA (PCR) Negative (Negative) 04/06/25 20:45 Lyme Disease Screen Negative (Negative) 04/06/25 16:52 Staphylococcus sp PCR DETECTED (NotDetected) A 04/06/25 18:22 mecA/C-Methicil Resis Gene Not Detected (NotDetected) 04/06/25 18:22 Staph epidermidis (PCR) DETECTED (NotDetected) A 04/06/25 18:22 Bld Cult ID Panel PCR See PCR Comment (NotDetected) 04/06/25 18:22 Impressions Venous Doppler Study 04/06/25 16:29 Clinical History: Pain Technique: Venous ultrasound evaluation was performed utilizing grayscale, color Doppler and wave form evaluation. Images were also obtained with and without compression Findings: The left common femoral, superficial femoral, popliteal, and visualized calf veins demonstrate normal anechoic lumens with full compressibility. Normal flow is seen on color Doppler images. Expected waveforms were produced with augmentation maneuvers There are enlarged left inguinal lymph nodes with fatty chacorta, the largest measuring 3 x 1.7 x 1.1 cm Impression: 1. No evidence of left leg deep venous thrombosis 2. Left inguinal adenopathy, nonspecific in nature Electronically signed by Harris Harris 04-06-2025 5:[address] 04/06/25 18:20 CT LEFT FEMUR WITH and WITHOUT CONTRAST: HISTORY: Pain TECHNIQUE: CT of the left femur was obtained with and without intravenous contrast. Coronal and sagittal reformats were created. IV CONTRAST: 100 mL of OMNIPAQUE 300 COMPARISON: None. FINDINGS: Within the subcutaneous fat layer of the anterior and medial thigh there are phlegmonous changes with edema with stranding of fat. No drainable/organized fluid collection is identified to suggest an abscess. There is overlying skin thickening to this area. Enlarged left inguinal lymph nodes are probably reactionary nature. IMPRESSION: Cellulitis in the subcutaneous layer of the left anterior and medial thigh with no abscess identified Electronically signed by Juvenal Verdin 04-06-2025 7:11 PM Ordered Studies 04/06/25 16:29 US venous doppler LE LT Stat 04/06/25 18:20 CT femur LT wo/w con Stat Hospital Course (1) Cellulitis of left leg: (2) Edema of left thigh: (3) Tobacco abuse: Plan Patient is a 29-year-old male who presents to ED 2/2 Left thigh pain/swelling/redness x 1 day. Left leg cellulitis --Leg CT:Cellulitis in the subcutaneous layer of the left anterior and medial thigh with no abscess identified --Venous Doppler: No evidence of left leg deep venous thrombosis. Left inguinal adenopathy, nonspecific in nature -- Blood culture as below --Nasal MRSA, Lyme screen negative --Patient states tolerating amoxicillin on multiple occasions with no issues although documented that he had penicillin allergies which is believed to be untrue --Discussed with infectious disease on 04/08/2025 --Vancomycin discontinued --Continue Rocephin, doxycycline>> plan to transition to cefadroxil 1 g twice a day to complete total 2-week course as recommended by infectious disease --Plan to discharge home today Abnormal blood cultures / growing Staph epidermidis: Likely contaminant --Repeat blood cultures pending --ECHO: No vegetation on ECHO Advised to follow-up with primary care physician on discharge for blood culture results Tobacco/nicotine abuse: nicotine patch added Internet Architect to quit smoking DVT Px: Lovenox SQ CODE STATUS Full code Total Time Total Time Spent Total Time Spent (In Minutes): 48 minutes Discharge Plan Discharge Items Patient Disposition: Home - Self-Care Reason For Visit: CELLULITIS Discharge Diagnosis: Left leg cellulitis Condition on Discharge: Good Activity: Per Instructions section Exercise/Sports: Gradually increase as tolerated Non-emergency contact: Primary Care Provider Call non-emergency contact if: you have any medication questions, your symptoms worsen, your pain is concerning for you and you have a fever Follow-up/Referrals: PCP,NO [Primary Care Provider] - (Travis - Once I have your insurance information, we will call you to set up a follow up appointment early next week. ) Diet: Heart Healthy Addtl Attending Provider Instructions: -- Follow-up with your primary care physician in 1 week as advised --Complete the antibiotic course cefadroxil 1 g twice a day as recommended by infectious disease until 04/20/2025 --Your final blood cultures are pending at the time of discharge. Follow-up with your physician for results. Seek immediate medical attention if your symptoms reoccur or worsen Please review medication list provided on discharge for any medication changes as instructed. Please call if you have any questions or problems. You can reach a [facility] hospitalist on duty at [facility] 24 hours a day by calling [phone] Pending Studies at Discharge: Yes Studies:: Blood cultures Stand-Alone Forms: [facility], Smoking Cessation Medications and DC Order Prescriptions: New Advanced Probiotic 625 mg (10 billion cell) Capsule 1 cap PO DAILY Qty: 14 0RF cefadroxil 1 gram tablet 1,000 mg PO BID Qty: 24 0RF Discharge Orders: Discharge Order (Routine); Ordered 04/08/25 Ordered By: Pedro Duncan Admission Data Admit Date/Time: 04/06/25 17:55 Attending Provider: Pedro Duncan Admit Provider: Moises Coleman Primary Care Provider: PCP,NO Other Providers: Moises Coleman; Ramesh De Anda; Keron Sheldon; Roderick Pitt I.; Marcel Evans II; Mayra Diego; Yunier Carter; Shahid Gracia; Deepali Edmond
== END 2025-04-08 15:36 | disposition home or self-care (01) | DRG 603 ==
LOC: ED 16:00 → SUATTDRO 17:55 → 3N 17:55